=== PATIENT | female | born 1965 | race Caucasian/White ===

== ENCOUNTER → 2023-08-21 08:44 | Outpatient (CLI) | payer BC, SELFPAY ==
--- NOTE | ~2023-08-21 | XR_ITS ---
XR lumbar spine 2-3V 08/21/2023 09:01 Indication: Low back pain Procedure: 2 views lumbar spine Comparison: No prior studies for comparison. Findings: There is mild levoscoliosis. Vertebral body heights are maintained. There is disc narrowing at L1-2 through L4-5. No evidence for spondylolisthesis. No acute fracture or traumatic malalignment . Pedicles intact. Sacral foramen are symmetric. Impression: 1: Moderate lumbar spondylosis with levoscoliosis. Reviewed, dictated and finalized at location A. Impression: 1: Moderate lumbar spondylosis with levoscoliosis.
== END ==
PROVIDERS: PCP Family Medicine
DX: M43.06 Spondylolysis, lumbar region (principal); M41.86 Other forms of scoliosis, lumbar region; G89.29 Other chronic pain
CPT/HCPCS: 72100